=== PATIENT | female | born 1985 | race Caucasian/White ===

== ENCOUNTER 2018-03-01 19:30 | Outpatient (CLI) | payer OTHER | END 2018-03-02 12:57 | disposition home or self-care (01) | LOC: OBS/DEL 19:30 | DX: O26.92 Pregnancy related conditions, unspecified, second trimester (principal); R10.2 Pelvic and perineal pain; Z34.82 Encounter for supervision of other normal pregnancy, second trimester; O60.02 Preterm labor without delivery, second trimester ==

== ENCOUNTER 2018-06-05 15:15 | Inpatient (IN) | payer OTHER ==
[~2018-06-05] VITALS: Ht 154.9 cm; Wt 55.3 kg
== END 2018-06-10 13:39 | disposition home or self-care (01) | DRG 775 ==
LOC: LDR 06-08 21:26 → OB/GYN 06-08 23:07
PROC: 10E0XZZ Delivery of Products of Conception, External Approach (ICD-10-PCS; principal; 2018-06-08)
PROC: 0UQMXZZ Repair Vulva, External Approach (ICD-10-PCS; 2018-06-08)
PROC: 10907ZC Drainage of Amniotic Fluid, Therapeutic from Products of Conception, Via Natural or Artificial Opening (ICD-10-PCS; 2018-06-08)
PROC: 4A033R1 Measurement of Arterial Saturation, Peripheral, Percutaneous Approach (ICD-10-PCS; 2018-06-08)
PROC: 4A1HXCZ Monitoring of Products of Conception, Cardiac Rate, External Approach (ICD-10-PCS; 2018-06-08)
DX: O70.0 First degree perineal laceration during delivery (principal); Z3A.37 37 weeks gestation of pregnancy; Z37.0 Single live birth